=== PATIENT | male | born 1975 | race Caucasian/White ===

== ENCOUNTER 2023-09-20 11:08 | Day surgery (SDC) | payer OTHER ==
[2023-09-17 13:24] VITALS: BMI 24.1
[2023-09-20 11:24] VITALS: TEMP 97.4
[2023-09-20 12:39] VITALS: RESP 20
[2023-09-20 13:06] VITALS: BP 122/82; PULSE 76
== END 2023-09-20 12:40 | disposition home or self-care (01) ==
LOC: FASU-ENDO 11:08
PROVIDERS: ATTEND Internal Medicine Gastroenterology
PROC: 0DJD8ZZ Inspection of Lower Intestinal Tract, Via Natural or Artificial Opening Endoscopic (ICD-10-PCS; principal; 2023-09-20 11:40)
DX: Z12.11 Encounter for screening for malignant neoplasm of colon (principal)